=== PATIENT | male | born 1985 | race Caucasian/White ===

== ENCOUNTER 2022-12-15 23:22 | Emergency (ER) | payer MEDICAID, SELFPAY ==
[2022-12-15 23:23] VITALS: BP 159/91; PULSE 69; RESP 16; TEMP 36.1; O2SAT 100; BMI 26.5
[2022-12-16] MEDS: Tetracaine 0.5% Ophthalmic Bottle 1 DRP OPHTHALMIC (00:13)
[2022-12-16] MEDS: Fluorescein 1 MG STRIP 1 STRIP OPHTHALMIC (00:14)
--- NOTE | 2022-12-16 01:34 | EX.ED.VIS.EY ---
HPI History of Present Illness Chief Complaint: Eye Problem Informant: patient Onset/Context/Timing Location: Left Eye Onset: Today Context: Sudden Onset Timing: Continuous Worsened by: Blinking Relieved by: Nothing Associated Symptoms Associated Symptoms - Eyes: Drainage, Foreign body sensation, Pain and Redness; Negative for Burning, Crusting, Eyelid swelling, Itching, Matting or Photophobia Visual Changes: left: Blurred vision History of injury: Yes and Foreign body Visual correction: None Narrative Narrative: Patient presents with a foreign body sensation to his left eye that began approximately 5 hours prior to arrival. Patient states that he was picking up glass from a broken soraida jar. Patient thinks he may have had some glass on his hand. Patient states he wiped his forehead and thinks something may have gotten into his left eye. Patient states he has a foreign body sensation in his eye. Patient admits to some watery drainage. Patient admits to some blurry vision in his left eye. Patient does not wear contacts or glasses. PFSH PFS Medical History no medical history no medical history Home Medications NK 12/15/22 [History Last Taken Unknown] Allergy/AdvReac Type Severity Reaction Status Date / Time No Known Allergies Allergy Verified 12/15/22 23:23 Surgical History no surgical history no surgical history Social History Smoking Status: Former smoker ROS ROS ED Constitutional Constitutional ED: Denies chills or fever(s) Eyes Eyes: Reports blurry vision left; Denies change in vision ENT ENT ED: Denies rhinorrhea or sore throat Cardiovascular Cardiovascular: Denies chest pain or palpitations Respiratory/Chest Respiratory/Chest: Denies cough or dyspnea Gastrointestinal Gastrointestinal: Denies nausea or vomiting Genitourinary Genitourinary ED: Denies dysuria or hematuria Musculoskeletal Musculoskeletal: Denies back pain or neck pain Integumentary Denies abscess or rash Neurologic Neurologic: Denies headache(s) or weakness Allergic/Immunologic Allergic/Immunologic ED: Denies mouth swelling or urticaria EXAM Physical Exam Const Vital Signs: 12/15/22 23:23 Temperature 97 F L Temperature Source Temporal Pulse Rate 69 Respiratory Rate 16 Blood Pressure 159/91 H Blood Pressure Mean 113 Pulse Ox 100 Positive well nourished and well developed General Appearance ED: well developed and NAD HEENT atraumatic; Negative for tenderness Eyes Eyes Narrative: Pupils are equal, round, and reactive to light bilaterally. Extraocular muscles are intact. Anterior chamber was clear. There is no hyphema noted. Conjunctiva was injected on the left. There were no obvious foreign bodies noted. Funduscopic exam was not well tolerated. Tetracaine and fluorescein dye was applied. Under slit-lamp examination, there is a foreign body over the inferior cornea. Anterior chamber was clear. There is no cell or flare. There is a small corneal abrasion noted at the site of the foreign body. Neck supple and no JVD Resp normal respiratory effort and clear to auscultation bilaterally Cardio regular rate and regular rhythm Neuro oriented x3, CN's II-XII intact bilaterally, moves all extremities and no sensory deficits noted Sensorium / Orientation: alert Motor Exam: strength 5/5 throughout MDM MDM MDM Narrative Medical decision making narrative: The new foreign body was removed with a moistened Q-tip. Patient tolerated the procedure well. Patient was given erythromycin ophthalmic ointment. Patient was instructed to apply the ointment every 4 hours while awake. Patient was instructed to follow-up with his primary care physician in 1 to 2 days. Patient understood and was agreeable with the plan. All questions were answered. Discharge Plan Triage Chief Complaint: Eye Problem ED Provider: Demetrius Samayoa Dx/Rx/DC Orders Clinical Impression: Foreign body in cornea, left eye, initial encounter, Abrasion of left cornea Instructions: ED Corneal Abrasion, ED Corneal Foreign Body, Removed Prescriptions: No Action NK Primary Care Provider: Care Physician,No Primary Referrals: Doron Cao MD [Med Staff - Active Staff] - 2 Days Care Physician,No Primary [Primary Care Provider] - Disposition Disposition: Home, Self Care Discharge Date/Time: 12/16/22 02:05
--- NOTE | 2022-12-16 02:04 | ED.RN ---
ERYTHROMYCIN OINTMENT PROVIDED TO PT FOR HOME USE.
== END 2022-12-16 02:05 | disposition home or self-care (01) ==
PROVIDERS: Emergency Provider Emergency Medicine; Visit Provider Emergency Medicine
DX: T15.02XA Foreign body in cornea, left eye, initial encounter (principal); H53.8 Other visual disturbances; Z87.891 Personal history of nicotine dependence; X58.XXXA Exposure to other specified factors, initial encounter
CPT/HCPCS: 99282